=== PATIENT | male | born 1955 | race Caucasian/White ===

== ENCOUNTER 2018-06-28 06:40 | Day surgery (SDC) | payer BC ==
[~2018-06-28] VITALS: Ht 157.5 cm; Wt 80.9 kg
[2018-06-28] VITALS (11 sets, daily range): BP systolic 120–157; BP diastolic 60–82; PULSE 54–59; RESP 15–20; Ht 157.5 cm; Wt 80.9 kg
[2018-06-28] MEDS ORDERED: FAMOTIDINE 20 MG TAB PO ONE (07:30)
[2018-06-28] MEDS ORDERED: SOD CHLORIDE 0.45% 1,000 ML IV SCH (07:30)
[2018-06-28] MEDS ORDERED: DIPHENHYDRAMINE 50 MG CAP PO ONE (07:30)
[2018-06-28] MEDS ORDERED: DIAZEPAM 5 MG TAB PO ONE (07:30)
[2018-06-28] MEDS ORDERED: ATOR-2 PO (07:45)
[2018-06-28] MEDS ORDERED: CLOP75TA27 PO (07:45)
[2018-06-28] MEDS ORDERED: LISI-313 PO (07:45)
[2018-06-28] MEDS ORDERED: NITR0.4T39 SL (07:45)
[2018-06-28] MEDS ORDERED: ASPI-817 PO (07:45)
[2018-06-28] MEDS ORDERED: MIDAZOLAM 1 MG/ML 2 ML INJ ONE (09:16)
[2018-06-28] MEDS ORDERED: HEPARIN 1000 UNITS/ML 10 ML INJ ONE (09:16)
[2018-06-28] MEDS ORDERED: FENTAnyl 50 MCG/ML VIAL ONE (09:16)
[2018-06-28] MEDS ORDERED: LIDOCAINE 1% (MDV) 20 ML INJ ONE ×2 (09:16→10:00)
[2018-06-28] MEDS ORDERED: IODIXANOL LOCM 100 ML BTL ONE (09:16)
[2018-06-28] MEDS ORDERED: VERAPAMIL 5 MG INJ ONE (09:16)
[2018-06-28] MEDS ORDERED: NITROGLYCERIN (IC) 100 MCG/ML INJ ONE (09:17)
[2018-06-28] MEDS ORDERED: SOD CHLORIDE 0.9% 1,000 ML IV SCH (10:46)
--- NOTE | 2018-06-28 10:53 | SIPON ---
Date/Time of Note Date/Time of Note DATE: 06/28/18 TIME: 10:49 Operative Report Preoperative Diagnosis 1.Chest pain 2.abnl mpi Postoperative Diagnosis 1.Patent stents. Small vessel disease Operation/Procedure Performed 1.[facility] Surgeon see signature line child nutrition assistant Jose L Anesthesia: moderate sedation Estimated blood loss: minimal Transfusion Required none Specimen none Grafts/Implants none Complications none JOSIE CABRERA June 28, 2018 10:53
[2018-06-28] MEDS ORDERED: ACETAMINOPHEN 325 MG TAB PO PRN (11:00)
[2018-06-28] MEDS: morphine 2 MG INJ IV PRN ×2 (11:10→13:26)
[2018-06-28] MEDS ORDERED: HYDROCODONE/APAP (5/325) TAB PO PRN (14:00)
--- NOTE | 2018-06-28 14:25 | CARRPT ---
DATE OF PROCEDURE: 06/28/2018 TYPE OF PROCEDURE: 1. Left heart catheterization. 2. Coronary angiography. 3. Femoral angiography. 4. Perclose closure device to right femoral artery. 5. Moderate conscious sedation. 6. Venous femoral central line. ATTENDING PHYSICIAN: Dr. Josie Ruiz. REFERRING PHYSICIAN: Self-referred. INDICATION: Chest pain refractory to medical therapy, positive findings for anterior lateral inferior ischemia. TYPE OF ANESTHESIA: Conscious and local. BRIEF HISTORY: Mr. Ybarra is a 62-year-old male with history of hypertension, dyslipidemia, coronary artery disease, status post prior [employer] and stent placement to LAD, circumflex 2016, who presented with complaints of substernal chest pain. The patient with cardiac stress test showing positive ischemia in anterior lateral inferior distribution. Given these findings, the patient referred for and presents today in order to assess catheterization to assess possibility of significant respiratory disease lending to symptoms of chest pain and positive stress test findings. DESCRIPTION OF PROCEDURE: After informed consent was obtained, the patient was placed in the cardiac catheterization lab where initially his right radial area was prepped and draped in the usual sterile fashion, 2% lidocaine was infiltrated into right radial area to achieve adequate anesthesia. Using modified Seldinger technique, the radial artery was cannulated and we did place the sheath although the wire was in great placement, the sheath would likely draw back, so the sheath to be removed and a TR band was applied and at this time access was changed to the right femoral artery using modified seldinger technique and 6-[place] arterial sheath was placed. Additionally, a 5-[place] venous sheath was placed at this time. Through the 6-[place] arterial sheath was placed. The patient will need catheterization with the JL4 catheter to cannulate the left main coronary ostium. With contrast injection, multiple views of the left coronary arterial system were obtained. JL4 was removed over a guidewire and JR4 was used to cannulate the right coronary arterial ostium. With contrast injection, multiple views of the right coronary arterial system were obtained. A JR4 was removed over a guidewire and a 6-[place] pigtail was passed down the ascending aorta into the LV. LVEDP was measured, 20 mL of contrast were injected opacifying the left ventricle and then pullback across the aortic valve to assess for significant gradient, which there was not and removed. Subsequently, at this time a final angiographic image of the right femoral arterial insertion site was then obtained revealing the sheath to be well placed in the right common femoral artery. Subsequently, a 6-[place] Perclose device used completing procedure. There were no noted complications. FINDINGS: 1. Coronary angiography: Left main 4 mm, no significant stenoses. The circumflex proximally is a 3 mm vessel and first diagonal has a 20% to 30% stenosis. There is a long stented zone which is widely patent. The circ continuation AV groove is free from focal stenoses. Several mid branching obtuse marginals, all sub 2 mm vessels and the circ is a dominant vessel and therefore gives off a left-sided PDA 1.5 mm with no significant focal stenoses. The LAD proximally is a 3 mm vessel and in its midportion has a long stented zone was widely patent with very mild in-stent restenosis up to 20% to 30%. The remainder of LAD is free from focal stenoses around the apex. There is a distal branching diagonal subcentimeter vessel, no signs of focal stenosis and a proximal branching diagonal sub 1.5 vessel with a midbody 50% to 60% stenosis and a 1.5 mm vessel. The right coronary artery proximally is a 2 mm vessel and is a small nondominant vessel with no significant focal stenoses. Measurement of the left ventricular diastolic pressure of 11 to 13, a left ventricular ejection fraction of approximately 55%. No significant aortic stenosis by gradient. Femoral angiography revealed the sheath to be placed in the right common femoral artery. No significant focal stenosis noted there. TOTAL FLUOROSCOPY TIME: 3.8 minutes. TOTAL CONTRAST: 75 mL. IMPRESSION: 1. Small vessel disease involving a small diagonal sub-1.5 mm vessel, with otherwise widely patent stents in the patient's circumflex and LAD distributions: 2. Normal left heart filling pressures. 3. No significant aortic stenosis by gradient. RECOMMENDATIONS: 1. At this time, would maintain patient on maximal medical therapy. We will see maintain patient on aggressive medical therapy. 2. We will continue aspirin, Plavix and consider addition of nitrates and beta blockers, possible calcium channel blockers given small caliber of all vessels. Question any vaso spasm. 3. History of smoking. Dictated By: JOSIE RICE/ABDIEL Conf#: [id number] DID#: [id number] [facility] HOSPITALArianne
--- NOTE | 2018-06-28 21:47 | RADRPT ---
Vent Rate: 55 bpm RR Interval: 1096 msec GA Interval: 176 msec QRS Duration: 104 msec QT Interval: 446 msec QTC Interval: 426 msec P-R-T [place]: 73 - 20 - 73 degrees Sinus rhythm...normal P axis, V-rate 50- 99 Electronically Signed By: Vnicent Ruiz
== END 2018-06-28 17:16 | disposition home or self-care (01) ==
LOC: CCL 06:40 → SDS 06:40 → CCL 17:16
PROVIDERS: ATTEND Internal Medicine
DX: I25.10 Atherosclerotic heart disease of native coronary artery without angina pectoris (principal); I10 Essential (primary) hypertension; E78.00 Pure hypercholesterolemia, unspecified; Z79.82 Long term (current) use of aspirin
CPT/HCPCS: 71045; 80053; 80061; 85025; 85610; 85730; 93005; 93458; C1760; C1887; C1894; J1644; J2250; J2270; J3010; Q9967; Z7610